=== PATIENT | male | born 1960 | race African-American/Black ===

== ENCOUNTER 2023-10-04 08:37 | Emergency (ER) | payer OTHER, SELFPAY ==
[2023-10-04 08:42] VITALS: BP 101/67; PULSE 75; RESP 18; TEMP 36.1; O2SAT 100
[2023-10-04 08:53] LABS: Glucose Point of Care 71 mg/dl (65-105)
[2023-10-04 09:38] LABS: Glucose Point of Care 98 mg/dl (65-105)
[2023-10-04 09:40] LABS: Basophils Absolute Auto 0.1 K/mm3 (0.0-0.1); Basophils Percent Auto 0.8 % (0.2-1.2); Eosinophils Absolute Auto 0.2 K/mm3 (0-0.3); Eosinophils Percent Auto 1.9 % (0-4.4); Hematocrit 43.4 % (42.0-52.0); Hemoglobin 14.6 g/dL (14.0-18.0); Immature Granulocyte Absolute 0.05 K/mm3 (0.00-0.031); Immature Granulocyte Percent A 0.4 % (0-0.5); Mean Corpuscular HGB Conc 33.6 g/dl (32-36); Mean Corpuscular Hemoglobin 26.8 pg (26-34); Mean Corpuscular Volume 79.6 fl (80-100); Monocytes Absolute Auto 0.8 K/mm3 (0.1-0.6); Monocytes Percent Auto 6.7 % (2.6-8.5); Neutrophils Absolute Auto 9.7 K/mm3 (1.3-6.7); Neutrophils Percent Auto 80.2 % (45.5-73.1); Platelet Count Result 252 k/mm3 (150-375); Red Blood Count 5.45 M/mm3 (4.6-6.20); Red Cell Distribution Width 14.9 % (11.5-14.5)
[2023-10-04 09:50] LABS: Alanine Aminotransferase 38 U/L (6-50); Albumin Level 4.5 g/dL (3.5-5.1); Alkaline Phosphatase 98 U/L (38-126); Anion Gap 11 mmol/L (8-16); Aspartate Amino Transferase 38 U/L (17-59); Bilirubin,Total 0.4 mg/dL (0.2-1.3); Blood Urea Nitrogen 19 mg/dL (9-20); Calcium 9.2 mg/dL (8.4-10.2); Carbon Dioxide 29 mmol/L (22-30); Chloride 98 mmol/L (98-107); Estimated Glomerular Filt Rate > 60; Glucose 86 mg/dL (65-110); Potassium 4.4 mmol/L (3.4-5.0); Sodium 138 mmol/L (137-145)
--- NOTE | 2023-10-04 10:05 | ED.GENADULT ---
HPI - General Adult General Chief complaint: Recheck/Abnormal Lab/Rx Stated complaint: low BS Time Seen by Provider: 10/04/23 09:22 History of Present Illness HPI narrative: 63-year-old male presenting to the emergency department for evaluation after taking his morning insulin without having breakfast. Patient states that he took 40 units of short-acting insulin but had not eaten breakfast. Patient states he did have some episodes of confusion and diaphoresis at home. Patient did have a granola bar at home and has been eating sandwiches here and patient does feel back to his baseline. Patient denies any acute complaints at this time and patient is alert and oriented Related Data Home Medications Medication Instructions Recorded Confirmed atorvastatin 10 mg tablet mg 10/04/23 empagliflozin 25 mg tablet mg 10/04/23 10/04/23 (Jardiance) gabapentin 600 mg tablet mg 10/04/23 glyburide 5 mg tablet mg 10/04/23 lisinopril 10 tablet 10/04/23 mg-hydrochlorothiazide 12.5 mg tablet metformin 1,000 mg tablet mg 10/04/23 oxybutynin chloride 5 mg mg PO 10/04/23 tablet,extended release 24 hr paroxetine HCl 20 mg tablet mg PO 10/04/23 tamsulosin 0.4 mg capsule mg PO 10/04/23 Allergies Allergy/AdvReac Type Severity Reaction Status Date / Time No Known Allergies Allergy Mild Verified 10/04/23 09:38 Review of Systems Review of Systems: All systems reviewed & are unremarkable except as noted in HPI and below Exam Narrative: APPEARANCE: Well appearing, no pain, no distress, well-nourished. HEAD: normocephalic, atraumatic. EYES: PERRLA/EOMI, conjunctivae clear. NOSE: Normal no drainage NECK: Supple. No adenopathy, no masses. RESPIRATORY: Airway patent, respirations nonlabored. Clear to auscultation bilaterally, no rales, rhonchi, wheezing. CARDIOVASCULAR: Regular rate and rhythm without murmurs rubs or gallops. ABDOMINAL: Soft, nontender, nondistended, normal bowel sounds MUSCULOSKELETAL: Moves all extremities. Strength/ROM intact, No edema, No calf tenderness. NEURO: Alert. Cranial nerves II through XII intact. Good gait. Good coordination SKIN: Warm, dry. Normal Color Course Course Emergency Course: 63-year-old male presenting ED for evaluation of hyperglycemia after taking his morning insulin without eating. Patient has been tolerating p.o. in the emergency department and patient's blood sugars have been stable. Poison Control was consulted and they recommended keeping the patient for 5 hours. Patient took the insulin at 6:00 a.m. and at noon patient is stable and well appearing. Vital Signs Vital signs: Vital Signs Temperature 97.0 F L 10/04/23 08:42 Pulse Rate 75 10/04/23 08:42 Respiratory Rate 18 10/04/23 08:42 Blood Pressure 101/67 10/04/23 08:42 Pulse Oximetry 100 10/04/23 08:42 Oxygen Delivery Room Air 10/04/23 08:42 Temperature 97.0 F L 10/04/23 08:42 Pulse Rate 61 10/04/23 12:23 Respiratory Rate 18 10/04/23 12:23 Blood Pressure 128/75 10/04/23 12:23 Pulse Oximetry 98 10/04/23 12:23 Oxygen Delivery Room Air 10/04/23 08:42 Medical Decision Making Vital Signs Vital Signs: Vital Signs Temperature 97.0 F L 10/04/23 08:42 Pulse Rate 75 10/04/23 08:42 Respiratory Rate 18 10/04/23 08:42 Blood Pressure 101/67 10/04/23 08:42 Pulse Oximetry 100 10/04/23 08:42 Oxygen Delivery Room Air 10/04/23 08:42 Temperature 97.0 F L 10/04/23 08:42 Pulse Rate 61 10/04/23 12:23 Respiratory Rate 18 10/04/23 12:23 Blood Pressure 128/75 10/04/23 12:23 Pulse Oximetry 98 10/04/23 12:23 Oxygen Delivery Room Air 10/04/23 08:42 Lab Data Lab results reviewed: Yes I reviewed the patient's lab results. 10/04/23 09:31 10/04/23 09:31 Labs: Lab Results 10/04/23 10/04/23 10/04/23 Range/Units 08:41 09:31 09:32 WBC 12.0 H (4.5-10.0) K/mm3 RBC 5.45 (4.6-6.20) M/mm3 Hgb 14.6 (14
--- NOTE | 2023-10-04 10:06 | PC.NURSE ---
SPOKE WITH POISON CONTROL RN @ WHO RECOMMENDED THAT WE WATCH PT FOR 5-7 HOURS AFTER MED WAS TAKEN. NOVOLIN N [address] HAS ONSET OF 1-3HOURS, PEAK OF 5-7 HOURS AND DURATION OF 13-16 HOURS. SHE RECOMMENDS FEEDING HIM A REGULAR MEAL AND CONTINUING WITH HOURLY ACCUCHECKS. ALSO DOESN'T WANT THE PT TO TAKE HIS NIGHT INSULIN. DR FLORES MADE AWARE OF RECOMMENDATIONS
--- NOTE | 2023-10-04 10:15 | PC.NURSE ---
Reg standard diet lunch tray ordered
[2023-10-04 10:32] LABS: Glucose Point of Care 152 mg/dl (65-105)
[2023-10-04 11:42] LABS: Glucose Point of Care 154 mg/dl (65-105)
[2023-10-04 12:23] VITALS: BP 128/75; PULSE 61; RESP 18; O2SAT 98
== END 2023-10-04 12:24 | disposition home or self-care (01) ==
PROVIDERS: Emergency Provider Emergency Medicine; PCP Internal Medicine
DX: E11.649 Type 2 diabetes mellitus with hypoglycemia without coma (principal); T38.3X5A Adverse effect of insulin and oral hypoglycemic [antidiabetic] drugs, initial encounter; Z79.4 Long term (current) use of insulin
CPT/HCPCS: 36415; 80053; 82948; 85025; 99283